=== PATIENT | male | born 1990 | race Caucasian/White ===

== ENCOUNTER → 2024-01-23 15:56 | Outpatient (REF) | payer BC, SELFPAY | LOC: DHCBC HW 15:56 | PROVIDERS: ATTENDING PHYSICIAN Internal Medicine Cardiovascular Disease; FAMILY PHYSICIAN Family Medicine | DX: I42.8 Other cardiomyopathies (principal); I42.0 Dilated cardiomyopathy; I50.20 Unspecified systolic (congestive) heart failure; I25.10 Atherosclerotic heart disease of native coronary artery without angina pectoris; E78.2 Mixed hyperlipidemia | CPT/HCPCS: 93306 ==

== ENCOUNTER 2025-04-12 08:41 | Outpatient (RCR) | payer BC, SELFPAY ==
[2025-04-09 14:34] LABS: Glucose - Point of Care 246 mg/dl (70-99)
[2025-04-09 15:18] LABS: Glucose - Point of Care 237 mg/dl (70-99)
[2025-04-12 06:37] LABS: Glucose - Point of Care 189 mg/dl (70-99)
[2025-04-12 07:24] LABS: Glucose - Point of Care 212 mg/dl (70-99)
== END 2025-04-12 23:59 | disposition home or self-care (01) ==
LOC: CRHB 08:41
PROVIDERS: ATTENDING PHYSICIAN Family Medicine
DX: Z94.1 Heart transplant status (principal)
CPT/HCPCS: 82962; 93798